=== PATIENT | male | born 1980 | race Caucasian/White ===

== ENCOUNTER 2020-07-28 17:29 | Emergency (ER) | payer OTHER ==
[~2020-07-28] VITALS: Ht 167.6 cm; Wt 63.5 kg
[2020-07-28] MEDS ORDERED: Tetanus/Diptheria/Pertussis IM ONE (18:15)
[2020-07-28] MEDS ORDERED: Omnipaque-300 100ml vial INJ PRN (18:15)
[2020-07-28] MEDS ORDERED: Piperacillin/Tazobactam 3.375 GM in NS 110 ML IVPB ONE (18:15)
--- NOTE | 2020-07-28 18:16 | Emergency Room Report ---
History of Present Illness General Chief Complaint: Skin Rash/Abscess Source: Patient Present Illness HPI Patient is a 39-year-old male with past medical history of recurrent abscesses who presents emergency department with multiple complaints. First complaint is left sarahi-anal abscess x1 week. Also complains of abscess to the right proximal medial thigh. Patient admits to being sexually active with females with history of anal receptive intercourse. Endorses chills but denies any fever, back pain, dyschezia, melena hematochezia, hematuria, dysuria, penile discharge, scrotal/testicular pain, cough, chest pain or any other issue. Patient endorses chronic hemorrhoids The patient's symptoms were gradual onset, severity was moderate, duration since 1 weeks. Quality: Aching Past medical history: Hemorrhoids, recurrent abscess Past surgical history: Denies Smoking: ++ Alcohol use: ++ Drug use: Denies Review of systems: CONST: No fevers ++ chills, No night sweats PULMONARY: No productive cough, No shortness of breath CARDIAC: No chest pain, No palpitations GI: No vomiting, No diarrhea , No melena_or_BRBPR : No dysuria, No hematuria, No discharge NEURO: No new_focal_weakness_or_numbness, No confusion, No vision changes 14 point Review of Systems is otherwise negative except per HPI Physical Exam: GENERAL: Awake_alert_ nontoxic, no acute distress Spo2 95% on RA -normal EYES: Extraocular muscles are intact. Conjunctivae clear. Lids without swelling ENT: External nose and ear normal_in_appearance. Oropharynx clear. Head_atraumatic, Moist_oral_mucosa NECK: No JVD. No meningismus. No thyromegaly. Supple. Trachea midline RESP: Normal respiratory effort. Symmetric rise. No stridor. Clear_to_auscultation_No_rales_No_wheezes CARDIAC: Regular rate and regular rhytm. No_significant pedal edema. ABDOMEN: Soft. Nondistended. Nontender_No_rebound_or_guarding. Rectal: Non thrombosed external hemorrhoid at the 12 o'clock position. Superficial Right perianal abscess close to anal verge with active purulent drainage. No surrounding cellulitis or palpable crepitus. No Josey's gangrene. Normal tone and sensation, light brown stool, no melena or blood. Chaperoned wit h nurse at bedside. No tender ligamental lymphadenopathy. MSK: Normal muscle tone, without rigidity. Extremities without asymmetric deformity or swelling. SKIN: Scab 1cm x 1cm to R medial thigh. No fluctuance, crepitus or surrounding cellulitis. Warm and dry. No visible cyanosis or pallor. No petechiae. NEUROLOGIC: Alert, oriented x3. Motor_and_sensation_grossly_intact. No truncal ataxia. Gait_normal Psych: Normal mood and affect, normal judgment and insight - COORDINATION OF CARE Case was discussed with: Patient Any labs and imaging that were ordered were interpreted as part of the medical decision making: Abscess Incision and Drainage with irrigation by me: Location: Right perirectum Anesthesia: None Technique: Abscess already open and actively draining purulent thick material. Expressed approximately 3 cc of gross purulence. Packing: None Complications: Neurovascularly intact post procedure Patient tolerated procedure well without complications. Patient offered in creased incision and description of loculation, however denies secondary to pain of first abscess drainage Medical Decision Making/Plan: Differential diagnosis includes perirectal abscess, perianal abscess, cutaneous abscess, cellulitis, STD, anal fissure, hemorrhoid. Doubt small bowel obstruction, volvulus, AAA, pancreatitis, among others. Patient is well appearing with stable vital signs. Abdominal exam is non peritoneal with no guarding or rebound. I was pear picker for the rectal examination and found ++ perirectal abscess. It was actively draining purulent material so pressure was applied to express all of the fluctuance within the abscess cavity. Additional incision and drainage was offered, however patient declines stating too much pain. Tdap was updated. Labs show unremarkable CBC, CMP. CT scan of the abdomen pelvis demonstrate left perianal abscess approximately 1 cm. No subcutaneous gas. Zosyn given. Will DC with Cipro, Flagyl, and Anusol suppository. Pertinent results reviewed with the patient. I educated the patient on the current treatment plan including the risks, benefits, and alternatives. I recommend that he gets outpatient follow-up with a general surgeon as fistulas are common with perianal abscess. I also discussed the extent and limitations of the current evaluation. The patient expressed understanding and agreement with plan. I recommended PMD follow-up within 1-2 days. Also advised that the patient return to the Emergency Department as soon as possible if they experience any new, persistent, or worsening symptoms. Allergies: Coded Allergies: No Known Allergies (Unverified , 07/28/20) COVID-19 Screening Contact w/high risk pt: No Experienced COVID-19 symptoms?: No COVID-19 Testing performed SORT OPERATIONS SUPERVISOR: No Nursing Documentation-[facility] Past Medical History: No Stated History Physical Exam Vital Signs Date Time Temp Pulse Resp B/P (MAP) Pulse Ox O2 Delivery O2 Flow Rate FiO2 07/28/20 17:46 98.2 80 18 95 Room Air Sp02 EP Interpretation: reviewed, normal Medical Decision Making Diagnostic Impression: Primary Impression: Rectal abscess Additional Impressions: Hemorrhoid Thigh abscess Perianal abscess CT/MRI/US Diagnostic Results CT/MRI/US Diagnostic Results : Impression CT Abdomen and Pelvis With Intravenous Contrast ABDOMEN: Liver: Unremarkable. Gallbladder and bile ducts: Unremarkable. Pancreas: Unremarkable. Spleen: Unremarkable. Adrenals: Unremarkable. Kidneys and ureters: No hydronephrosis. Stomach and bowel: No bowel obstruction. No bowel wall thickening. PELVIS: Appendix: No evidence of appendicitis. Bladder: Mildly distended and thickened bladder. Reproductive: Unremarkable. ABDOMEN and PELVIS: Intraperitoneal space: Unremarkable. Bones/joints: No acute fractures. Soft tissues: 1 cm soft tissue thickened area along the left perianal fold. Vasculature: No abdominal aortic aneurysm. Lymph nodes: No enlarged lymph nodes. IMPRESSION: 1 cm soft tissue thickened area along the left perianal fold. Possibly an early abscess or phlegmon. Mildly thickened and distended bladder. Radiologist: Sharon Callejas MD Last Vital Signs Date Time Temp Pulse Resp B/P (MAP) Pulse Ox O2 Delivery O2 Flow Rate FiO2 07/28/20 17:46 98.2 80 18 95 Room Air Disposition: HOME, SELF-CARE Admit Decision Time: 20:00 Condition: Stable Scripts Naproxen* (NAPROXEN*) 500 Mg Tablet.dr 500 MG ORAL TWICE A DAY for 7 Days, #14 TAB Prov: Stephany Paul.ONancy 07/28/20 Hydrocortisone Acetate* (ANUSOL-HC*) 25 Mg Supp.rect 1 SUPP RECTAL TWICE A DAY for 1 Day, #2 SUPP Prov: Stephany Paul D.O. 07/28/20 Metronidazole* (FLAGYL*) 500 Mg Tablet 500 MG ORAL BID for 7 Days, #14 TAB Prov: PaulStephany dawkins D.O. 07/28/20 Ciprofloxacin Hcl* (CIPROFLOXACIN HCL*) 500 Mg Tablet 500 MG ORAL Q12H, #14 TAB 0 Refills Prov: Stephany Paul D.O. 07/28/20 Referrals: [facility],REFERRING (PCP) Patient Instructions: Abscess, Hemorrhoids, [id number], Nonsurgical Procedures for Hemorrhoids, Perirectal Abscess Additional Instructions: Instructions for patient/wedding makeup artist: Follow up with your physician in 1-2 days for wound check and referral to outpatient general surgeon for perianal abscess as fistulas and recurrence are common. Keep your rectal area clean, dry, intact. No anal sex or penetration until symp toms completely resolve. Eat plenty of fiber. Hydrate well. Follow-up with your doctor sooner if your condition requires a more timely clinical reevaluation. Return to the emergency department immediately if you feel that your condition is worsening or if you have any new or concerning symptoms. Review your discharge instructions and take any prescriptions given as instructed. [facility] PROVIDES FREE OR LOW-COST HEALTH SERVICES TO PEOPLE WHO CAN SHOW PROOF THAT THEY LIVE IN [facility]. TO FIND MORE CLINICS PARTNERED WITH THE [facility] TO PROVIDE SERVICE, PLEASE CALL . Stephany Paul D.O. Jul 28, 2020 18:16
[2020-07-28 18:54] LABS: EOSINOPHILS % (AUTO) 2.7 % (0.0-3.0); HEMATOCRIT 48.7 % (42.0-52.0); HEMOGLOBIN 16.1 G/DL (14.2-18.0); LYMPHOCYTES % (AUTO) 21.8 % (20.0-45.0); MEAN CORPUSCULAR VOLUME 93 FL (80-99); MONOCYTES % (AUTO) 9.5 % (1.0-10.0); PLATELET COUNT 215 K/UL (150-450); RED BLOOD COUNT 5.25 M/UL (4.70-6.10); RED CELL DISTRIBUTION WIDTH 12.3 % (11.6-14.8); WHITE BLOOD COUNT 8.5 K/UL (4.8-10.8)
[2020-07-28] MEDS ORDERED: METRONIDAZOLE500 MG ORAL (19:00)
[2020-07-28] MEDS ORDERED: NAPROXEN500 M1 ORAL (19:00)
[2020-07-28] MEDS ORDERED: CIPROFLOXACIN500 M2 ORAL (19:00)
[2020-07-28] MEDS ORDERED: ANUSOL-HC25 MG RECTAL (19:00)
[2020-07-28 19:03] LABS: ANION GAP 6 mmol/L (5-15); BLOOD UREA NITROGEN 10 mg/dL (7-18); CALCIUM 9.1 MG/DL (8.5-10.1); CARBON DIOXIDE 30 MMOL/L (21-32); CHLORIDE 105 MMOL/L (98-107); CREATININE 0.8 MG/DL (0.55-1.30); POTASSIUM 4.3 MMOL/L (3.5-5.1); SODIUM 141 MMOL/L (136-145)
[2020-07-28 19:08] LABS: ALANINE AMINOTRANSFERASE 25 U/L (12-78); ALBUMIN 4.2 G/DL (3.4-5.0); ALBUMIN/GLOBULIN RATIO 1.4 (1.0-2.7); ALKALINE PHOSPHATASE 79 U/L (46-116); ASPARTATE AMINO TRANSFERASE 18 U/L (15-37); BILIRUBIN,TOTAL 0.5 MG/DL (0.2-1.0)
--- NOTE | 2020-07-28 19:44 | Diagnostic Imaging Report ---
EXAM: CT Abdomen and Pelvis With Intravenous Contrast CLINICAL HISTORY: ABSCESS TECHNIQUE: Axial computed tomography images of the abdomen and pelvis with intravenous contrast. CTDI is 4.2 mGy and DLP is 247.8 mGy-cm. One or more of the following dose reduction techniques were used: automated exposure control, adjustment of the mA and/or kV according to patient size, use of iterative reconstruction technique. COMPARISON: No relevant prior studies available. FINDINGS: Lung bases: No mass. No consolidation. ABDOMEN: Liver: Unremarkable. Gallbladder and bile ducts: Unremarkable. Pancreas: Unremarkable. Spleen: Unremarkable. Adrenals: Unremarkable. Kidneys and ureters: No hydronephrosis. Stomach and bowel: No bowel obstruction. No bowel wall thickening. PELVIS: Appendix: No evidence of appendicitis. Bladder: Mildly distended and thickened bladder. Reproductive: Unremarkable. ABDOMEN and PELVIS: Intraperitoneal space: Unremarkable. Bones/joints: No acute fractures. Soft tissues: 1 cm soft tissue thickened area along the left perianal fold. Vasculature: No abdominal aortic aneurysm. Lymph nodes: No enlarged lymph nodes. IMPRESSION: 1 cm soft tissue thickened area along the left perianal fold. Possibly an early abscess or phlegmon. Mildly thickened and distended bladder.
--- NOTE | 2020-07-28 20:15 | NUR ---
ER DISCHARGE NOTE: Patient is cleared to be discharged per ERMD, pt is aox4, on room air, with stable vital signs. pt was given dc and prescription instructions, pt was able to verbalize understanding, pt id band and iv site removed without complications. pt is able to ambulate with steady gait. pt took all belongings.
== END 2020-07-28 20:15 | disposition home or self-care (01) ==
LOC: EMR 18:00
DX: K61.1 Rectal abscess (principal); K61.0 Anal abscess; K64.9 Unspecified hemorrhoids; L02.415 Cutaneous abscess of right lower limb; Z23 Encounter for immunization
CPT/HCPCS: 10060; 36415; 74177; 80053; 85025; 85610; 85730; 90471; 90715; 96365; J2543; Q9965; Z7502; 99284